=== PATIENT | female | born 1990 | race Caucasian/White ===

== ENCOUNTER → 2024-03-03 09:30 | Outpatient (REF) | payer BC, SELFPAY | LOC: PNTC 09:30 | PROVIDERS: ATTENDING PHYSICIAN Obstetrics & Gynecology | DX: O09.529 Supervision of elderly multigravida, unspecified trimester (principal) | CPT/HCPCS: 76816 ==

== ENCOUNTER → 2024-03-31 08:46 | Outpatient (REF) | payer BC, SELFPAY | LOC: PNTC 08:46 | PROVIDERS: ATTENDING PHYSICIAN Obstetrics & Gynecology | DX: O36.63X0 Maternal care for excessive fetal growth, third trimester, not applicable or unspecified (principal) | CPT/HCPCS: 76816 ==

== ENCOUNTER 2024-04-13 14:46 | Inpatient (IN) | payer BC, SELFPAY ==
[2024-04-13 14:53] VITALS: BMI 32.6
[2024-04-13] MEDS: LR 1000 IV (15:00)
[2024-04-13 15:02] VITALS: BP 125/77
[2024-04-13 15:23] LABS: % Basophils 0.2 % (0-2); % Eosinophils 0.1 % (0-6); % Immature Granulocytes 0.4 % (0-0.5); % Lymphocytes 11.1 % (20.5-51.1); % Monocytes 4.8 % (1.7-9.3); % Neutrophils 83.4 % (42.2-75.2); Absolute Immature Granulocytes 0.1 10^3/uL (0-0.05); Absolute Lymphocytes 1.4 10^3/uL (1.2-3.4); Absolute Monocytes 0.6 10^3/uL (0.1-0.6); Absolute Neutrophils 10.1 10^3/uL (1.4-6.5); Hemoglobin 13.1 g/dL (12.0-16.0); Mean Corp Hgb Conc. 35.4 g/dL (33.0-37.0); Mean Corpuscular Hgb 33.2 pg (27.0-31.0); Mean Corpuscular Volume 93.9 fL (81.0-99.0); Mean Platelet Volume 10.6 fL (7.4-10.4); Nucleated Red Blood Cells % 0 %; Platelet Count 172 10^3/uL (130-400); Red Blood Cell Count 3.94 10^6/uL (4.20-5.40); White Blood Cell Count 12.1 10^3/uL (4.8-10.8)
[2024-04-13] MEDS: PENICILLIN 110 UNITS IV (15:30)
[2024-04-13 15:37] LABS: ALT (SGPT) 30 U/L (0-35); AST (SGOT) 24 U/L (14-36); Albumin 3.4 g/dl (3.5-5.0); Alkaline Phosphatase 145 U/L (38-126); Blood Urea Nitrogen 9 mg/dl (7-17); Calcium 9.3 mg/dl (8.4-10.2); Carbon Dioxide 18 mmol/L (22-30); Chloride 106 mmol/L (98-107); Estimated Creatinine Clearance > 125 ml/min; Glucose 102 mg/dl (70-99); Potassium 3.9 mmol/L (3.5-5.1); Sodium 134 mmol/L (135-145); Total Bilirubin 0.5 mg/dl (0.2-1.3); Total Protein 6.2 g/dl (6.3-8.2); eGFR > 60.00
[2024-04-13] MEDS: SUBLIMAZE 100 MCG EPIDURAL (16:00)
[2024-04-13] MEDS: FENTANYL/BUPIVACAINE 100 EPIDURAL ×2 (16:00→22:57)
--- NOTE | 2024-04-13 18:29 | CON.CAR ---
Consultation
Consultation Request
Date/Time Consultation Requested: 04/13/2024 at 5:30 PM
Date/Time Consultation Performed: 04/13/2024 at 5:50 PM
Requesting Provider: Amada Lou [employer]
Performing Provider: Dr. Calvert
Reason for Consultation: Ventricular bigeminy
Medical History
-
History of Present Illness:
33-year-old woman who is in labor and delivery in active labor. This is her first . Shortly after receiving epidural the pulse oximeter was reading a slower heart rate nurse noted irregular rhythm and ECG showed ventricular bigeminy
prompting consult. Patient states she felt a bit shaky after the epidural. She did not have palpitations. Currently feels fine and denies having any symptoms of chest discomfort or shortness of breath. She states she has a history of vasovagal
syncope. At 1 point in her life she would have about 1 fainting episode a year which would be triggered by GI issues. She said if she was sick or if she ate something that did not agree with her it might trigger her to pass out. She underwent a
cardiology evaluation in 2006 which she says was unremarkable. She was told she had vasovagal syncope. Now she knows that if she starts to get any symptoms that she lays down and it sounds as if she usually can abort the episode. She has had no
recent episodes of syncope. Last episode was a couple years ago. Prior to becoming she was active and exercising without symptoms she has had no symptoms during her . Minimal ankle edema. In discussion with OB patient's had 1
elevated blood pressure reading as an outpatient and they were monitoring her for preeclampsia but blood pressures since then have been stable.
Past medical history denies having any other past medical history other than what is noted above
Social history 's with her the bedside
family history no family history of
Cardiac disease. Positive family history of hypertension\\
ECG tracing 04/13/2024 sinus rhythm with ventricular bigeminy and nonspecific T wave abnormality
Allergies / Home Medications
Allergy/AdvReac Type Severity Reaction Status Date / Time
No Known Allergies Allergy Verified 04/13/24 15:01
�Medication �Instructions �Recorded �Confirmed �Type
prenat.vits,tyree,kig-tiel-pihkv 1 tab PO 1XD 04/13/24 04/13/24 History
Review of Systems
-
All other systems: Negative unless noted
Physical Exam
Vital Signs
Temp Pulse Resp BP
98.1 F 81 18 125/77
04/13/24 15:02 04/13/24 15:02 04/13/24 15:02 04/13/24 15:02
Lab Results
04/13/24 15:08
04/13/24 15:08
Physical Exam
General: Well Developed and Well Nourished
HEENT: Normocephalic, Anicteric and Other (Eyes extract was intact external ear normal exam unremarkable)
Respiratory: Other (Clear with no wheezes rales or rhonchi)
Cardiac: Regular Rhythm (No murmur rub or gallop)
GI: Other (Abdomen is consistent with level of )
Musculoskeletal: No Clubbing
Skin: Warm
Neuro: Awake, Alert and Oriented
Hematologic/Lymphatic: No Lymphadenopathy
Impression / Plan
-
Ventricular bigeminy. Appears patient had asymptomatic ventricular bigeminy. Unclear if she has periods of PVCs and bigeminy as an outpatient. No prior cardiac history other than what appears to be a history of vasovagal syncope with an otherwise
unremarkable cardiac evaluation in 2006.. Plan reviewed with OB and nursing
-Add on labs magnesium and TSH with reflex T4
-Monitor on telemetry
-Echocardiogram this admission
History of vasovagal syncope. As noted above
Data Reviewed
-
EKG: Tracing Personally Visualized and interpreted and Report Reviewed by me
Medical Tests (Nuc Med, Echo etc): Report Reviewed by me
Labs: Labs Reviewed by me
[2024-04-13 18:31] LABS: Magnesium 1.7 mg/dl (1.6-2.3)
[2024-04-13] MEDS: PENICILLIN 55 UNITS IV (19:38)
--- NOTE | 2024-04-13 20:30 | PTCARENOTE ---
Went downstairs to see patient, heart sounds/apical rate within normal limits. Normal sinus, 60s-80s with PVCs. A short period of ventricular bigeminy, called downstairs and RN had laid patient flat to empty her bladder. Patient is not complaining
of any chest pain, dizziness, palpitations or any other symptoms, resting comfortably. Tele monitoring ongoing.
[2024-04-13 22:41] LABS: TSH Reflex To Free T4 1.02 uIU/ml (0.47-4.68)
--- NOTE | 2024-04-13 23:42 | PTCARENOTE ---
Patient in sustained ventricular bigeminy for a couple minutes, called down and asked RN if patient is feeling symptomatic/moving around, patient reports feeling normal and is resting comfortably. Monitoring ongoing.
[2024-04-14] MEDS: PENICILLIN 55 UNITS IV ×3 (00:24→08:17)
[2024-04-14] MEDS: ZOFRAN 4 MG IV (00:25)
[2024-04-14] MEDS: LR 1000 IV (01:11)
[2024-04-14] MEDS: PITOCIN 30 UNITS/NSS 500 ML IV (05:47)
[2024-04-14] MEDS: FENTANYL/BUPIVACAINE 100 EPIDURAL (07:08)
--- NOTE | 2024-04-14 11:00 | PTCARENOTE ---
Cardiac monitoring strip applied to chart. S1 S2 reg w/ NSR on monitor....occasional PVC and PAC noted. Denies any SOB or chest pain at present. Pt denies feeling ectopy. Will continue to monitor.
[2024-04-14] MEDS: METHERGINE INJECTION 0.200000000000000011 MG IM (11:15)
[2024-04-14 11:19] LABS: Cord ABG Comment CORD BLOOD
[2024-04-14 11:29] LABS: B.E. Cord ABG -6.8 mMOL/L; HCO3 Cord ABG 19.7 mmol/L; PCO2 Cord ABG 42 mmHg; PO2 Cord ABG 31 mmHg; pH Cord ABG 7.28
[2024-04-14 11:33] LABS: B.E. Cord ABG -7.1 mMOL/L; HCO3 Cord ABG 21.6 mmol/L; O2 Saturation % Cord ABG 35.9 %; PCO2 Cord ABG 54 mmHg; PO2 Cord ABG 21 mmHg; pH Cord ABG 7.21
--- NOTE | 2024-04-14 12:37 | W.PN.CD ---
Today's Communication / Plan
-
- Echo
- tele
Impression / Plan
-
Impression: 33F with bigeminy. H notable for vasovagal syncope
Plan
Ventricular bigeminy - improved after labor & delivery
- Add on labs magnesium and TSH with reflex T4 -> normal
- Monitor on telemetry -> PVCs have decreased
- Echocardiogram this admission
History of vasovagal syncope - she has never had syncope without a typical prodrome
Dispo
- Echo
- tele
Physical Exam
Vital Signs/Labs
Vital Signs
Temp Pulse Resp BP
36.7 C 81 18 125/77
04/13/24 15:02 04/13/24 15:02 04/13/24 15:02 04/13/24 15:02
04/13/24 04/14/24 04/15/24
06:59 06:59 06:59
Actual Weight 196 lb
04/13/24 15:08
04/13/24 15:08
Magnesium 1.7 mg/dl (1.6-2.3) 04/13/24 15:08
Physical Exam
Constitutional: No acute distress
EENT: Anicteric
Cardiovascular: Rhythm & rate is regular, Systolic murmur absent, Diastolic murmur absent and Pedal edema present
Respiratory: Respiratory effort normal
Neuro/Psych: Alert
Data Reviewed
-
Date of Service: April 14, 2024
EKG: Other (as abve)
--- NOTE | 2024-04-14 12:45 | PTCARENOTE ---
New ECG stickers applied. Discussed plan of care w/ . Will continue to maintain on cardiac monitoring until echo completed.
[2024-04-14] MEDS: PROCTOFOAM-HC FOAM 10 GM RECTAL (14:19)
[2024-04-14] MEDS: MOTRIN 600 MG PO ×2 (14:56→21:02)
--- NOTE | 2024-04-14 17:15 | PTCARENOTE ---
Addendum entered by Verena Montes De Oca RN 04/14/24 17:30:
ECHO done per . ECHO normal. Ok to d/c tele.
Original Note:
Spoke w/ . Pt to remain on cardiac monitoring until tmr after echo is done.
[2024-04-15] MEDS: TYLENOL 650 MG PO (05:49)
[2024-04-15] MEDS: MOTRIN 600 MG PO ×2 (05:49→20:39)
[2024-04-15 06:19] LABS: Hematocrit 30.4 % (37.0-47.0); Hemoglobin 10.4 g/dL (12.0-16.0)
[2024-04-15] MEDS: PRENATAL PLUS 1 TABLET PO (07:30)
[2024-04-15] MEDS: PROCTOFOAM-HC FOAM 10 GM RECTAL ×2 (08:05→23:29)
[2024-04-15] MEDS: PROCTOFOAM-HC FOAM 1 GM RECTAL ×2 (08:07→16:15)
[2024-04-15] MEDS: FEOSOL 325 MG PO ×2 (12:43→20:13)
[2024-04-15 15:08] LABS: Syphilis/T. pallidum Ab Reflex Negative (Negative)
[2024-04-16] MEDS: FEOSOL 325 MG PO (08:20)
[2024-04-16] MEDS: PRENATAL PLUS 1 TABLET PO (08:20)
[2024-04-16] MEDS: PROCTOFOAM-HC FOAM 10 GM RECTAL (08:21)
== END 2024-04-16 11:09 | disposition home or self-care (01) | DRG 807 ==
LOC: LDRP 14:46
PROVIDERS: Obstetrics & Gynecology; ADMITTING PHYSICIAN Obstetrics & Gynecology; OTHER PHYSICIAN Internal Medicine Cardiovascular Disease
PROC: 10907ZC Drainage of Amniotic Fluid, Therapeutic from Products of Conception, Via Natural or Artificial Opening (ICD-10-PCS; 2024-04-13)
PROC: 0UQMXZZ Repair Vulva, External Approach (ICD-10-PCS; 2024-04-14)
PROC: 6A550ZT Pheresis of Cord Blood Stem Cells, Single (ICD-10-PCS; 2024-04-14)
PROC: 10D07Z6 Extraction of Products of Conception, Vacuum, Via Natural or Artificial Opening (ICD-10-PCS; 2024-04-14)
DX: O48.0 Post-term pregnancy (principal); Z37.0 Single live birth; Z3A.40 40 weeks gestation of pregnancy; R00.8 Other abnormalities of heart beat; G43.909 Migraine, unspecified, not intractable, without status migrainosus; O99.344 Other mental disorders complicating childbirth; O99.824 Streptococcus B carrier state complicating childbirth; O70.0 First degree perineal laceration during delivery; O71.82 Other specified trauma to perineum and vulva; O69.2XX0 Labor and delivery complicated by other cord entanglement, with compression, not applicable or unspecified; O77.0 Labor and delivery complicated by meconium in amniotic fluid; O36.63X0 Maternal care for excessive fetal growth, third trimester, not applicable or unspecified; R03.0 Elevated blood-pressure reading, without diagnosis of hypertension; Z82.49 Family history of ischemic heart disease and other diseases of the circulatory system
CPT/HCPCS: 88307; 36415; 80053; 82803; 83735; 84443; 85014; 85018; 85025; 86780; 86850; 86900; 86901; 93005; 93306

== ENCOUNTER 2025-11-11 08:18 | Emergency (ER) | payer BC, SELFPAY ==
[2025-11-11 08:45] VITALS: BP 122/79
[2025-11-11 09:34] LABS: ALT (SGPT) 16 U/L (0-35); AST (SGOT) 17 U/L (14-36); Albumin 3.9 g/dl (3.5-5.0); Alkaline Phosphatase 45 U/L (38-126); Blood Urea Nitrogen 8 mg/dl (7-17); Calcium 8.8 mg/dl (8.4-10.2); Carbon Dioxide 27 mmol/L (22-30); Chloride 104 mmol/L (98-107); Glucose 85 mg/dl (70-99); Potassium 4.4 mmol/L (3.5-5.1); Sodium 136 mmol/L (135-145); Total Protein 7.1 g/dl (6.3-8.2); eGFR > 60.00
[2025-11-11 09:48] LABS: Hematocrit 37.9 % (37.0-47.0); Hemoglobin 13.3 g/dL (12.0-16.0); Mean Corp Hgb Conc. 35.1 g/dL (33.0-37.0); Mean Corpuscular Volume 89.0 fL (81.0-99.0); Nucleated Red Blood Cells % 0 %; Platelet Count 210 10^3/uL (130-400); Red Cell Dist. Width 12.6 % (11.5-14.5)
[2025-11-11 10:21] VITALS: BMI 29.7
[2025-11-11 10:25] VITALS: BP 110/61
--- NOTE | 2025-11-11 10:28 | EDRN ---
Testing Specialist notified pt full for US.
--- NOTE | 2025-11-11 10:31 | EDRN ---
Pt given more water to drink And awaiting to go to US.
--- NOTE | 2025-11-11 10:32 | EDRN ---
Pt has drank 28 oz already.
--- NOTE | 2025-11-11 11:11 | EDRN ---
Pt so full she could not hold her urine any longer. Pt went to BR and peed tiny amount to take off the pressure and is still full per pt and drinking again.
--- NOTE | 2025-11-11 12:11 | ED.GENMED ---
History of Present Illness
General
Chief Complaint: Problems
Source: patient
Exam Limitations: none
Time Seen by Provider: 11/11/25 10:01
Nursing documentation reviewed up to this point in time: agreed with
History of Present Illness
History of Present Illness:
see MDM
Past History
Past History
ED Past Medical History: None
ED Past Surgical History: None
Social History
Tobacco: Non-smoker
Alcohol: None
Review of Systems
Review of Systems
Allergies reviewed?: Yes
All Other Systems: Not applicable
Phy Exam
Physical Exam
Physical Exam:
GENERAL: Alert , in no apparent distress
EYE: pupils equal and reactive
NECK: Supple
ENT: o/p clr, mmm.
CARDIAC: Regular rate and rhythm .
LUNGS: Clear breath sounds bilaterally, no acute respiratory distress, no wheezes/rales/rhonchi
ABDOMEN: Soft, without focal tenderness, no r/g, no cvat, normal bowel sounds
gu: deferred
NEUROLOGICAL: Alert and oriented, no focal neuro deficits
SKIN: Warm and dry, skin intact.
MUSCULOSKELETAL: No edema, well perfused. neg herman's sign
PSYCH: Normal and appropriate interaction.
Course
Orders/Labs/Results
Orders:
Orders
11/11/25 08:49
US 2nd/3rd Trimester Urgent
Comment:
Reason For Exam: vaginal bleeding
Date of Last Menstrual Period: 07/30/25
EDC?: 06
11/11/25 09:01
Type And Crossmatch [Type+Screen] Urgent
Beta HCG Quantitative Urgent
Comment: ADD ON
Complete Blood Count/With Diff Urgent
Comprehensive Metabolic Panel Urgent
11/11/25 10:37
Add On- LAB Urgent
Tests Added?: hcg serum quant
11/11/25 12:48
Urinalysis Reflex To Culture Urgent
Date Specimen was Collected: 11/11/25
Time Specimen was Collected: 12:46
Abnormal Lab Results
11/11/25
09:01
MCH 31.2 H pg
(27.0-31.0)
Lymphocytes % 19.8 L %
(20.5-51.1)
Creatinine 0.5 L mg/dL
(0.6-1.0)
11/11/25 09:01
11/11/25 09:01
Vital Signs
Initial and Last Documented VS:
Initial Vital Signs
Temp Pulse Resp BP Pulse Ox
37.0 C 92 20 122/79 99
11/11/25 08:45 11/11/25 08:45 11/11/25 08:45 11/11/25 08:45 11/11/25 08:45
Last Documented Vital Signs
Temp Pulse Resp BP Pulse Ox
37.0 C 93 16 108/63 98
11/11/25 08:45 11/11/25 12:45 11/11/25 12:45 11/11/25 12:45 11/11/25 12:45
Information
Weeks gestation: Weeks: (15)
Location: Location: (iup)
MDM/Problems Addressed
Differential Diagnosis Includes:
see MDM
MDM/Problems Addressed:
Note:
CHIEF COMPLAINT(S)
Bleeding and cramping during early .
HISTORY OF PRESENT ILLNESS
The patient is a female approx 15 weeks preg presenting with cramping and vaginal bleeding. She reported the onset of cramping overnight, and small amount of red blood after wiping yesterday evening and today once with wiping, darker brown. The
patient noted increased activity over the past two weeks and mentions that the cramping worsens with movement.
no urinary symptoms, fever, vomiting, clots
has had US for this preg
followed by dr. emily DIAS
PAST SURGICAL HISTORY
The patient mentioned a previous vaginal delivery that required a vacuum-assisted procedure.
PHYSICAL EXAM
- Nursing notes reviewed and vital signs reviewed.
- Relevant specifics were not provided in the conversation.
PLAN
- Ultrasound to evaluate the condition of the baby and check for placental complications.
- Urinalysis to rule out urinary tract infections, providing a sample if needed during the visit.
- Monitor and observe any further symptoms or changes in condition.
- Discussion regarding the management of activity levels during the .
DIFFERENTIAL DIAGNOSIS
The Differential Diagnosis includes, in no particular order and is not limited to:
1. Subchorionic hemorrhage
2. Placenta previa
3. Threatened miscarriage
4. Urinary tract infection
5. Cervical polyps
6. Cervical incompetence
7. Ectopic
8. Gestational trophoblastic disease
9. Early labor or labor symptoms
10. Uterine fibroids
CARE-UPDATE
11/11/25 - 13:07
The patients cervix is closed, and there is some extent of activity, but the patient is experiencing occasional pain that may indicate a potential urinary tract infection (UTI). A urinalysis has been requested to confirm the presence of infection.
If a UTI is identified, antibiotics will be administered. The patient is advised to defer horseback riding, sexual activity, and similarly strenuous activities for at least one week after the symptoms subside to ensure safety. The fetus appears to
be in good condition.
11/11/25 - 14:22
Urinalysis shows no signs of infection or hematuria, indicating a reassuring status. Diagnosed with threatened miscarriage due to spotting, but current findings are reassuring. Advised pelvic rest and normal activity with caution; ok to lift her
baby but should otherwise avoid strenuous activities. Follow-up scheduled for Thursday for babys evaluation.
*Pulse Oximetry
SaO2: 98
Oxygen Mode of Delivery: Room air
Patient hypoxic: no (98)
*Critical Care Note
Total Time (30-74mins, 75-104mins- exclusive of procedures): Not Applicable
ED Attending Note
-
Portions of this chart may have been created with voice recognition software.� Occasional wrong word or��sound alike� substitutions may have occurred due to the inherent limitations of voice recognition software.
Discharge Plan
Departure
Patient Disposition: Home (Routine Discharge)
Date of Disposition: 11/11/25
Time of Disposition: 14:16
Patient with high blood pressure during this ER visit?: No
Condition: Fair
Discharge Problem:
Threatened miscarriage
Instructions: Threatened Miscarriage (DC)
Prescriptions:
No Action
ibuprofen 600 mg Tablet
600 mg PO Q6HPRN PRN (Reason: moderate pain/cramps) Qty: 0 0RF
Referrals:
Thee Horvath MD [Family Provider, Family Practice]
Activity Restrictions/Additional Instructions:
YOUR ULTRASOUND SHOWED THAT THE BABY HAS A NORMAL HEART RATE, THERE IS NO OPENING OF YOUR CERVIX AND NO PROBLEMS WITH YOUR PLACENTA
REST, TYLENOL FOR PAIN
PROBABLY AVOID RIDING HORSES FOR AT LEAST A WEEK
RETURN FOR ANY COCNERNS.
Interventions
Interventions:
*General Assessment Last Done: 11/11/25 10:23
*Neglect/Abuse Screening Last Done: 11/11/25 10:23
*ED COVID-19 Vaccine History Last Done: 11/11/25 10:22
*ED Influenza Vaccine History Last Done: 11/11/25 10:22
[facility] Risk Assessment Tool Last Done: 11/11/25 10:22
*Risk Screen - Suicide (C-SSRS) Last Done: 11/11/25 10:23
*Nursing Disposition Last Done: 11/11/25 14:35
ED-Female Genitourinary Assessment Last Done: 11/11/25 10:24
Discharge Date and Time
Discharge Date/Time: 11/11/25 14:35
Print Language: ESTONIAN
[2025-11-11 12:45] VITALS: BP 108/63
[2025-11-11 14:08] LABS: Urine Character Clear (Clear)
== END 2025-11-11 14:35 | disposition home or self-care (01) ==
LOC: EMR 08:18
PROVIDERS: Emergency Medicine; Physician Assistant; EMERGENCY PHYSICIAN Student in an Organized Health Care Education/Training Program; FAMILY PHYSICIAN Family Medicine
DX: O20.0 Threatened abortion (principal); O09.522 Supervision of elderly multigravida, second trimester; Z3A.15 15 weeks gestation of pregnancy
CPT/HCPCS: 99284; 76805; 80053; 81003; 84702; 85025; 86850; 86900; 86901